=== PATIENT | female | born 1950 | race Caucasian/White ===

== ENCOUNTER → 2022-01-18 09:59 | Outpatient (CLI) | payer MEDICARE, OTHER, SELFPAY ==
[2022-01-18 10:27] LABS: COVID19 -Nasal RAPID Negative (Negative)
== END ==
PROVIDERS: PCP Family Medicine; Visit Provider Surgery
DX: Z20.822 Contact with and (suspected) exposure to COVID-19 (principal); Z01.812 Encounter for preprocedural laboratory examination
CPT/HCPCS: 87635; C9803

== ENCOUNTER 2022-01-21 08:09 | Day surgery (SDC) | payer MEDICARE, OTHER, SELFPAY ==
--- NOTE | 2022-01-21 | PATH_ITS ---
[facility] Accession Number: [id number] . 01 Material submitted: . rectum - RECTAL POLYP . 01 Clinical history: . COLONOSCOPY . 01 Diagnosis: Rectal Polyp, Biopsy: Tubular adenoma. MRV 01/22/2022 1637 Local . 01 Electronically signed: . Tony Duffy MD, PhD, Pathologist NPI- [id number] . 01 Gross description: . RECTAL POLYP: Received in formalin is 1 fragment(s) of adkins, soft tissue measuring 0.2 x 0.2 x 0.2 cm submitted entirely in 1 cassette(s) /LIBRADO 01/21/2022 2311 Local . 01 Pathologist provided ICD-10: D12.8 . 01 CPT . 308897 Specimen Comment: A courtesy copy of this report has been sent to [phone] Performed at: 01 [facility] [address] [place] [address], [place], [place] [id number] MD Celestino Mar MD Phone: [phone]
[2022-01-21 09:02] VITALS: BP 162/101; PULSE 84; RESP 16; TEMP 36.6; O2SAT 98; BMI 27.4
[2022-01-21] MEDS: SODIUM CHLORIDE 0.9% 1,000 ML 84 ML IV (09:19)
--- NOTE | 2022-01-21 09:28 | PM.HP.1 ---
History of Present Illness History of Present Illness Date Patient Seen: 01/21/22 Time Patient Seen: 09:28 Chief complaint: Colonoscopy Narrative: Personal history of colon polyps Patient History Medical History Asthma Diabetes mellitus HTN (hypertension) Hyperlipemia Hypothyroid Osteoporosis SVT (supraventricular tachycardia) Surgical History H/O knee surgery Family & Social History Social History: household members friend(s) Tobacco & Substance use: Tobacco type cigarettes Smoking Status Never smoker alcohol intake frequency other Substance Use Type does not use Meds Home Medications and Allergies Home Medications Medication Instructions Recorded Confirmed Type alendronate 70 mg tablet See Rx Instructions .Route .COMPLEX 01/21/22 01/21/22 History beclomethasone dipropionate 80 See Rx Instructions .Route .COMPLEX 01/21/22 01/21/22 History mcg/actuation HFA breath activated aerosol (Qvar RediHaler) chlorthalidone 50 mg tablet 50 mg PO DAILY 01/21/22 01/21/22 History levothyroxine 75 mcg tablet 75 mcg PO DAILY 01/21/22 01/21/22 History metformin 1,000 mg tablet 1,000 mg PO DAILY 01/21/22 01/21/22 History simvastatin 20 mg tablet See Rx Instructions .Route .COMPLEX 01/21/22 01/21/22 History sotalol 80 mg tablet 80 mg PO BID 01/21/22 01/21/22 History zolpidem 10 mg tablet See Rx Instructions .Route .COMPLEX 01/21/22 01/21/22 History Allergies Allergy/AdvReac Type Severity Reaction Status Date / Time olmesartan [From Benicar] AdvReac Intermediate Palpitation Verified 01/21/22 09:01 s Review of Systems Review of Systems ROS: Yes All systems reviewed with the patient and are negative except as otherwise documented Exam Vital Signs (past 8 hours): - 01/21/22 09:02 Temperature 97.9 F Pulse Rate 84 Respiratory Rate 16 Blood Pressure 162/101 H Pulse Oximetry 98 Oxygen Delivery Method Room Air Oxygen Delivery Method Room Air Const General: cooperative HENMT Head: normal to inspection Eyes General: appearance normal, both eyes and all related structures Neck Neck: normal visual inspection Chest Chest: normal inspection of the chest Resp Effort & Inspection: normal respiratory effort Cardio Rate: regular rate GI Inspection: normal to inspection Skin General: no rashes or lesions noted Neuro General: patient alert and patient awake Extrem General: normal to inspection and no pedal edema Psych Appearance: grossly normal Assessment & Plan Assessment & Plan narrative: 71-year-old with a personal history of colon polyps. Colonoscopy is pursued today. Time Spent With Patient Critical Care time: I spent a total of [] minutes of critical care time on this patient's care today; this time is exclusive of procedural time.
[2022-01-21 09:29] VITALS: BMI 27.4
--- NOTE | 2022-01-21 09:30 | PM.PREOP ---
Pre-operative Note COVID-19 COVID-19 status: Negative Result date/Date tested (Pos, Neg/Pending): 01/18/22 Criteria for continued procedure: Possibility delay results in more complex future surgery or treatment Interval Note History & Physical reviewed/Exam performed by Physician: Yes Changes to H&P: No ASA Class (for procedural sedation): II
--- NOTE | 2022-01-21 10:29 | PM.OP.COLON ---
Operative Date/Time/Diagnoses Date of procedure: 01/21/22 Time of procedure: 10:29 Pre-op diagnosis: Colon polyps history Post-op diagnosis: same Procedure & Clinicians Study performed: Colonoscopy with cold snare polypectomy Same procedure as scheduled: Yes Indications: Colon polyp history Surgeon: Yohannes Sifuentes Procedure Notes SCOAP/Timeout: Done Procedure in detail: After the risks and benefits were explained, written and verbal informed consent was obtained. The patient was brought into the procedure room and placed into the left lateral decubitus position. Please see nurse elevator erector notes for sedation details. Digital rectal examination was accomplished. The scope was introduced into the patient and advanced under direct visualization to the cecum as identified by the appendiceal orifice and ileocecal valve. The scope was slowly withdrawn to carefully examine the mucosa for any defects or lesions. Comprehensive imaging was accomplished throughout the rectum including the dentate line. The colon was decompressed, the scope was then removed from the patient who tolerated the procedure well. Bowel prep adequate Pediatric colonoscope Scope withdrawal time: 13 minutes Sedation minutes: 19 Complications: none Impression: There was a small 4-5 mm polyp in the rectum removed with cold snare. No additional significant mucosal pathology was identified throughout. Endoscopic diagnosis Small rectal polyp Post-procedure Plan for aftercare: 1. Await histopathology. 2. Consider repeat colonoscopy 7 years. Disposition: PACU
[2022-01-21 10:30] VITALS: BP 119/68; PULSE 80; RESP 20; TEMP 36.8; O2SAT 99
[2022-01-21 10:35] VITALS: BP 133/82; PULSE 78; RESP 18; O2SAT 100
[2022-01-21 10:40] VITALS: BP 137/81; PULSE 85; RESP 20; O2SAT 100
[2022-01-21 10:50] VITALS: BP 140/78; PULSE 77; RESP 18; TEMP 36.7; O2SAT 100
== END 2022-01-21 11:05 | disposition home or self-care (01) ==
PROVIDERS: PCP Family Medicine; Referring Provider Internal Medicine Gastroenterology; Visit Provider Internal Medicine Gastroenterology
PROC: 0DJD8ZZ Inspection of Lower Intestinal Tract, Via Natural or Artificial Opening Endoscopic (ICD-10-PCS; CPT 45378; principal; 2022-01-21 10:00)
DX: Z12.11 Encounter for screening for malignant neoplasm of colon (principal); D12.8 Benign neoplasm of rectum; I47.1 Supraventricular tachycardia; I10 Essential (primary) hypertension; E78.5 Hyperlipidemia, unspecified; E03.9 Hypothyroidism, unspecified; M81.0 Age-related osteoporosis without current pathological fracture; Z86.010 Personal history of colon polyps
CPT/HCPCS: 45385; 82962; J2405; J2704

== ENCOUNTER 2023-04-02 14:04 | Emergency (ER) | payer MEDICARE, OTHER, SELFPAY ==
[2023-04-02 14:12] VITALS: BP 166/97; PULSE 101; RESP 16; TEMP 36.5; O2SAT 98; BMI 26.2
--- NOTE | 2023-04-02 15:14 | ED_ITS ---
HPI - General Adult General Chief complaint: Dizziness Stated complaint: Vertigo/SVT/Heart rate 136/70-[facility] ref. cardiac Time Seen by Provider: 04/02/23 14:45 Source: patient Mode of arrival: Family Vehicle Limitations: no limitations History of Present Illness HPI narrative: 72-year-old female. Has had issues with vertigo for the past month and a half. She is not been specifically evaluated for it but she is talked with her primary doctor. There was some talk about getting her into see ear nose and throat but this is yet to happen. She does take meclizine. She states that the symptoms are normally worse in the morning. She wakes up. Becomes very unsteady on her feet. Feels like the room is spinning. This does seem to fatigue as the day goes on. She stated that this morning the symptoms were more pronounced. She does have a history of SVT. She normally can feel when her heart rate is beating fast. She is not complaining of that now. No sinus congestion. She does have tinnitus in her right ear but this is not new. No chest pain. No nausea vomiting or upper lower extremity weakness. Related Data Home Medications Medication Instructions Recorded Confirmed alendronate 70 mg tablet See Rx Instructions .Route .COMPLEX 01/21/22 01/21/22 beclomethasone dipropionate 80 See Rx Instructions .Route .COMPLEX 01/21/22 01/21/22 mcg/actuation HFA breath activated aerosol (Qvar RediHaler) chlorthalidone 50 mg tablet 50 mg PO DAILY 01/21/22 01/21/22 levothyroxine 75 mcg tablet 75 mcg PO DAILY 01/21/22 01/21/22 metformin 1,000 mg tablet 1,000 mg PO DAILY 01/21/22 01/21/22 simvastatin 20 mg tablet See Rx Instructions .Route .COMPLEX 01/21/22 01/21/22 sotalol 80 mg tablet 80 mg PO BID 01/21/22 01/21/22 zolpidem 10 mg tablet See Rx Instructions .Route .COMPLEX 01/21/22 01/21/22 Allergies Allergy/AdvReac Type Severity Reaction Status Date / Time olmesartan [From Benicar] AdvReac Intermediate Palpitation Verified 04/02/23 14:26 s Review of Systems ENT Ears, Nose, Mouth, and Throat: Reports system reviewed and no additional complaints, except as documented Cardiovascular Cardiovascular: Reports system reviewed and no additional complaints, except as documented Respiratory Respiratory: Reports system reviewed and no additional complaints, except as documented Gastrointestinal Gastrointestinal: Reports system reviewed and no additional complaints, except as documented Integumentary/Breasts Skin/Breast: Reports system reviewed and no additional complaints, except as documented Neurologic Neurologic: Reports system reviewed and no additional complaints, except as documented Patient History Medical History Osteoporosis Asthma Diabetes mellitus SVT (supraventricular tachycardia) Hyperlipemia Hypothyroid HTN (hypertension) Surgical History H/O knee surgery Social History household members: friend(s) Smoking Status: Never smoker Smoking Status: Never smoker alcohol intake frequency: other Substance Use Type: does not use Exam Initial Vital Signs Initial Vital Signs: Vital Signs Temperature 97.7 F 04/02/23 14:12 Pulse Rate 101 H 04/02/23 14:12 Respiratory Rate 16 04/02/23 14:12 Blood Pressure 166/97 H 04/02/23 14:12 Pulse Oximetry 98 04/02/23 14:12 Oxygen Delivery Method Room Air 04/02/23 14:12 HENMT Head: normal to inspection and normocephalic Resp Effort & Inspection: normal respiratory effort Auscultation: clear to auscultation bilaterally Cardio Rate: regular rate Rhythm: regular rhythm GI Inspection: normal to inspection and non-distended Palpation: soft and No tender Skin General: no rashes or lesions noted Neuro General: patient alert, patient awake, patient oriented x3 and moves all extremities Cranial Nerves: CN's II-XI intact bilaterally Cognition: normal cognition Speech: speech normal Gait: normal gait Extrem General: normal to inspection and capillary refill normal Course Orders Ordered: ED Orders 04/02/23 15:14 CT head/brain wo con Stat 04/02/23 15:15 EKG-12 Lead Stat Vital Signs Vital signs: Vital Signs - 8 hr 04/02/23 14:12 04/02/23 16:20 04/02/23 16:20 Temperature 97.7 F Pulse Rate 101 H 88 87 Respiratory Rate 16 16 16 Blood Pressure 166/97 H 162/87 H 163/86 H Pulse Oximetry 98 98 98 Oxygen Delivery Method Room Air Room Air Room Air Medical Decision Making Imaging Data CT scan - head: Radiologist's Impression: PROCEDURE: CT HEAD/BRAIN WO CON INDICATIONS: vertigo TECHNIQUE: Noncontrast 4.5 mm thick angled axial sections acquired from the foramen magnum to the vertex, with coronal and sagittal reformats. For radiation dose reduction, the following was used: automated exposure control, adjustment of mA and/or kV according to patient size. COMPARISON: None. FINDINGS: Image quality: Excellent. CSF spaces: Basal cisterns are patent. No extra-axial fluid collections. The ventricles are prominent, yet symmetric. Brain: No intracranial bleeds or masses. There is cerebral volume loss for age, with resultant ventricular and sulcal prominence. There are periventricular and deep white matter chronic small vessel ischemic changes. There is intracranial internal carotid artery atherosclerosis. Skull and face: Calvarium and visualized facial bones appear intact, without suspicious lesions. Sinuses: Visualized sinuses and mastoids are clear. IMPRESSION: No acute intracranial process is seen. Prominent lateral ventricles are seen, which are larger than would be expected, given the degree of sulcal atrophy. Please consider normal pressure hydrocephalus. ECG Data Attestation: I personally reviewed and interpreted this ECG as follows: Interpretation: Sinus rhythm Ventricular rate 93 Normal axis Normal QRS Normal QTC No ST T wave changes Discharge Plan Departure Patient Disposition: Home Clinical Impression: Vertigo Instructions: DI for Vertigo Activity Restrictions/Additional Instructions: Continue to take all of your medications as directed. I do recommend that you contact the Ear Nose and Throat doctor the number provided below for a follow- up. Return to the emergency department for new or worsening symptoms. Prescriptions: No Action alendronate 70 mg tablet See Rx Instructions .ROUTE .COMPLEX Rx Instructions: osteoprosis chlorthalidone 50 mg tablet 50 mg PO DAILY levothyroxine 75 mcg tablet 75 mcg PO DAILY metformin 1,000 mg tablet 1,000 mg PO DAILY Qvar RediHaler 80 mcg/actuation HFA aerosol breath activated See Rx Instructions .ROUTE .COMPLEX Rx Instructions: asthma simvastatin 20 mg tablet See Rx Instructions .ROUTE .COMPLEX Rx Instructions: cholesterol sotalol 80 mg tablet 80 mg PO BID Patient Comments: pt takes Q 12 hours for SVt zolpidem 10 mg tablet See Rx Instructions .ROUTE .COMPLEX Rx Instructions: sleep Referrals: Yonas Shen MD [Physician] - Jose Ventura DO [Primary Care Provider] - Stand Alone Forms: Patient Portal/API
[2023-04-02 16:20] VITALS: BP 162/87; BP 163/86; PULSE 87; PULSE 88; RESP 16; O2SAT 98
== END 2023-04-02 16:30 | disposition home or self-care (01) ==
PROVIDERS: Emergency Provider Emergency Medicine; PCP Family Medicine
DX: R42 Dizziness and giddiness (principal); I10 Essential (primary) hypertension
CPT/HCPCS: 70450; 93005; 99281; 99283

== ENCOUNTER → 2023-11-06 10:53 | Outpatient (CLI) | payer MEDICARE, OTHER, SELFPAY ==
--- NOTE | 2023-11-06 10:56 | EKG_ITS ---
[place] [address] [address] [address] Test Date: 2023-11-06 Pat Name: aTtyana Renteria Department: Room: Gender: Female Load Builder: BAILEY : 1950 Requested By: Order Number: [id number] Reading MD: Henry Matthew MD Measurements Intervals Mason Rate: 78 P: -13 WY: 152 QRS: -7 QRSD: 78 T: 17 QT: 392 QTc: 446 Interpretive Statements Normal sinus rhythm Low voltage QRS Electronically Signed On 11-06-2023 11:56:24 PDT by Henry Matthew MD
[2023-11-06 12:52] LABS: Add Manual Diff / Slide Review NO; Basophils Absolute Auto 100 /uL (0-100); Eosinophils Absolute Auto 300 /uL (0-450); Eosinophils Percent Auto 3.6 % (2-4); Hematocrit 41.4 % (36-46); Lymphocytes Absolute Auto 3400 /uL (1100-4500); Lymphocytes Percent Auto 36.8 % (25-40); Mean Corpuscular HGB Conc 33.8 % (30-36); Mean Corpuscular Hemoglobin 30.8 PG (26-34); Mean Corpuscular Volume 91.3 fL (80-100); Monocytes Absolute Auto 900 /uL (0-900); Monocytes Percent Auto 9.8 % (3-14); Neutrophils Absolute Auto 4600 /uL (1500-7000); Neutrophils Percent Auto 48.8 % (50-75); Platelet Count 297 X10^3/uL (150-400); Red Blood Cell Count 4.53 X10^6/uL (4.0-5.2); Red Cell Distribution Width 13.5 % (11.6-14.8); White Blood Cell Count 9.4 X10^3/uL (4.5-11.0)
[2023-11-06 13:02] LABS: Hemoglobin A1C% w Est Avg Glu 6.2 % (4.0-6.0)
[2023-11-06 13:14] LABS: HEMOLYSIS < 15 (0-50)
[2023-11-06 13:16] LABS: Albumin 4.6 g/dL (3.5-5.0); BUN Creatinine Ratio 19.1 (6-22); Blood Urea Nitrogen 17 mg/dL (7-17); Calcium 9.6 mg/dL (8.4-10.2); Carbon Dioxide 28 mmol/L (22-32); Chloride 101 mmol/L (98-107); Estimated Glomerular Filt Rate > 60 mL/min (>60); Glucose 99 mg/dL (80-110); Potassium 4.2 mmol/L (3.4-5.1); Sodium 139 mmol/L (137-145)
[2023-11-06 13:29] LABS: Prealbumin 24.8 mg/dL (17.6-36.0)
[2023-11-06 16:01] LABS: Vitamin D 25 Hydroxy (D3) 65.2 ng/mL (30.0-100.0)
== END ==
LOC: RESP 10:55
PROVIDERS: PCP Family Medicine; Referring Provider Orthopaedic Surgery Adult Reconstructive Orthopaedic Surgery; Visit Provider Orthopaedic Surgery Adult Reconstructive Orthopaedic Surgery
DX: Z01.818 Encounter for other preprocedural examination (principal); R73.9 Hyperglycemia, unspecified; E55.9 Vitamin D deficiency, unspecified; Z01.812 Encounter for preprocedural laboratory examination; R77.0 Abnormality of albumin
CPT/HCPCS: 36415; 80048; 82040; 82306; 83036; 84134; 85025; 93005; 93010